=== PATIENT | female | born 1980 | race Caucasian/White ===

== ENCOUNTER 2016-04-10 13:35 | Emergency (ER) | payer SELFPAY ==
--- NOTE | 2016-04-10 13:55 | ER Document Report ---
ED Medical Screen (RME) - General Stated Complaint: BACK PAIN Time seen by provider: 13:51 Mode of Arrival: Ambulatory Information source: Patient Notes: 35-year-old female presents to ED for low back pain with pain in the upper back. He was diagnosed with arthritis and was started on prednisone and naproxen. She states she cannot go back to her doctor at this time because her insurance has not and affect at this time. This pain started 3 days ago and she is well-developed a topical cream on the back. States when she went to bed 3 days ago she did not have any pain when she woke up she did have the pain. States she has not done any activity out of the coronary and has not fallen or injured her back. Last menstrual period 03/27/1969 I have greeted and performed a rapid initial assessment of this patient. A comprehensive ED assessment and evaluation of the patient, analysis of test results and completion of medical decision making process will be conducted by an additional ED providers. TRAVEL OUTSIDE OF THE [place] IN LAST 30 DAYS: No - Related Data Allergies/Adverse Reactions: latex [Latex] Allergy (Verified 04/10/16 13:51) Past Medical History - Immunizations Hx Diphtheria, Pertussis, Tetanus Vaccination: Yes
--- NOTE | 2016-04-10 17:17 | ER Document Report ---
ED Neck/Back Problem - General Time seen by provider: 16:30 Mode of Arrival: Ambulatory Information source: Patient TRAVEL OUTSIDE OF THE [place] IN LAST 30 DAYS: No - HPI Patient complains to provider of: Pain Onset: Other - see HPI Associated symptoms: Lower back pain, Upper back pain <MAREK BARRON - Last Filed: 04/10/16 22:12> <SAMIASERGEY ARMINDA - Last Filed: 04/10/16 22:27> - General Chief Complaint: Back Pain Stated Complaint: BACK PAIN Notes: Patient is a 35 year old female presenting to the emergency department complaining of back pain. Patient states that her pain is in her lower back as well as her upper back. Patient states that she is unable to lift her son or other objects. Patient states that her pain goes down her spine. Patient states she is here because she was unable to get into her PCP today. Patient states she works at [employer] and she was sent to the ED by her boss today from work. ( MAREK BARRON) - Related Data Allergies/Adverse Reactions: latex [Latex] Allergy (Verified 04/10/16 13:51) Past Medical History - General Information source: Patient - Social History Smoking Status: Unknown if Ever Smoked Chew tobacco use (# tins/day): No Frequency of alcohol use: Occasional Drug Abuse: None Family History: None Patient has suicidal ideation: No Patient has homicidal ideation: No Psychiatric Medical History: Reports: Hx Anxiety - Immunizations Hx Diphtheria, Pertussis, Tetanus Vaccination: Yes <MAREK BARRON - Last Filed: 04/10/16 22:12> Review of Systems - Review of Systems Constitutional: No symptoms reported EENT: No symptoms reported Cardiovascular: No symptoms reported Respiratory: No symptoms reported Gastrointestinal: No symptoms reported Genitourinary: No symptoms reported Female Genitourinary: No symptoms reported Musculoskeletal: See HPI, Back pain Skin: No symptoms reported Hematologic/Lymphatic: No symptoms reported Neurological/Psychological: No symptoms reported -: Yes All other systems reviewed and negative <MAREK BARRON - Last Filed: 04/10/16 22:12> Physical Exam - Vital signs Interpretation: Normal - General General appearance: Appears well, Alert, Other - Able to ambulate In distress: Mild - HEENT Head: Normocephalic, Atraumatic Eyes: Normal Pupils: PERRL Mucous membranes: Normal - Respiratory Respiratory status: No respiratory distress Chest status: Nontender Breath sounds: Normal Chest palpation: Normal - Cardiovascular Rhythm: Regular Heart sounds: Normal auscultation Murmur: No - Abdominal Inspection: Normal Distension: No distension Bowel sounds: Normal Tenderness: Nontender Organomegaly: No organomegaly - Back Back: Normal, Tender - Tenderness to palpation over the bilateral paraspinal, L3 -L5. No: CVA tenderness - Extremities General upper extremity: Normal inspection, Normal ROM, Normal strength General lower extremity: Normal inspection, Normal ROM, Normal strength - Neurological Neuro grossly intact: Yes Cognition: Normal Orientation: AAOx4 [place] Coma Scale Eye Opening: Spontaneous [place] Coma Scale Verbal: Oriented [place] Coma Scale Motor: Obeys Commands [place] Coma Scale Total: 15 Speech: Normal Sensory: Normal - Psychological Associated symptoms: Normal affect, Normal mood - Skin Skin Temperature: Warm Skin Moisture: Dry <MAREK BARRON - Last Filed: 04/10/16 22:12> Course <MAREK BARRON - Last Filed: 04/10/16 22:12> - Diagnostic Test Radiology reviewed: Reports reviewed <SERGEY GRACIA - Last Filed: 04/10/16 22:27> - Re-evaluation Re-evalutation: 04/10/16 Patient is a 35-year-old female who comes in complaining of back pain. Patient is neurologically intact and ambulates quite easily. X-ray within normal limits. No evidence for intraspinal spinal pathology stable for discharge home. Follow-up with her doctor. (SERGEY GRACIA) - Vital Signs Vital signs: Temp Pulse Resp BP Pulse Ox 97.9 F 75 16 101/62 98 04/10/16 13:48 04/10/16 18:10 04/10/16 18:10 04/10/16 18:10 04/10/16 18:10 (MAREK BARRON) (SERGEY GRACIA) Discharge <MAREK BARRON - Last Filed: 04/10/16 22:12> <SERGEY GRACIA - Last Filed: 04/10/16 22:27> - Discharge Clinical Impression: Low back pain Qualifiers: Chronicity: acute Back pain laterality: bilateral Sciatica presence: without sciatica Qualified Code(s): M54.5 - Low back pain Condition: Stable Disposition: HOME, SELF-CARE Instructions: Low Back Pain ([facility]) Prescriptions: Hydrocodone/Acetaminophen [[place] 5-325 mg Tablet] 1 tab PO BIDP PRN #20 tablet PRN Reason: Forms: Return to Work Referrals: TYLER HUTCHINSON MD [Primary Care Provider] - Follow up in 3-5 days Scribe Attestation: 04/10/16 22:27 I personally performed the services described in the documentation, reviewed and edited the documentation which was dictated to the scribe in my presence, and it accurately records my words and actions. (SERGEY GRACIA) Scribe Documentation - Scribe Written by Scribnavdeep:: Marek Barron 04/10/16 18:50 acting as scribe for :: Samia <MAREK BARRON - Last Filed: 04/10/16 22:12>
[2016-04-10 17:38] LABS: AMORPHOUS SEDIMENT,URINE TRACE /HPF; APPEARANCE,URINE CLOUDY; BILIRUBIN,URINE NEGATIVE (NEGATIVE); GLUCOSE, URINE NEGATIVE (NEGATIVE); KETONES,URINE NEGATIVE (NEGATIVE); LEUKOCYTE ESTERASE,URINE NEGATIVE (NEGATIVE); NITRITE,URINE NEGATIVE (NEGATIVE); PROTEIN,URINE NEGATIVE (NEGATIVE); URINE SPECIFIC GRAVITY 1.011; UROBILINOGEN,URINE NEGATIVE mg/dL (<2.0)
[2016-04-10 18:12] VITALS: BP 101/62
== END 2016-04-10 18:10 | disposition home or self-care (01) ==
LOC: ER 13:35
DX: M54.5 Low back pain (principal); Z91.040 Latex allergy status
CPT/HCPCS: 72110; 81001; 81025; 99283

== ENCOUNTER 2017-06-12 18:54 | Emergency (ER) | payer MEDICAID, OTHER ==
[2017-06-12] MEDS ORDERED: LIDOCAINE 1% INJ-PF (10 MG/ML) 30 ML SDV INFIL ONE (20:07)
[2017-06-12] MEDS ORDERED: CEFTRIAXONE INJ 250 MG VIAL IM ONE (20:07)
[2017-06-12] MEDS ORDERED: AZITHROMYCIN 250 MG TABLET PO ONE (20:07)
--- NOTE | 2017-06-12 20:10 | ER Document Report ---
ED General - General Chief Complaint: Abdominal Pain Stated Complaint: ABDOMINAL PAIN Time Seen by Provider: 06/12/17 19:20 Mode of Arrival: Ambulatory Information source: Patient Notes: 36-year-old female presents with complaint of vaginal discharge for the past week. Patient notes foul odor denies any fevers or chills denies any nausea vomiting or diarrhea TRAVEL OUTSIDE OF THE [place] IN LAST 30 DAYS: No - HPI Onset: Last week Onset/Duration: Persistent Quality of pain: Sharp Severity: Mild Pain Level: 1 Associated symptoms: Other Exacerbated by: Denies Relieved by: Denies Similar symptoms previously: No - No previous history of STDs Recently seen / treated by doctor: No - Related Data Allergies/Adverse Reactions: latex [Latex] Allergy (Verified 06/12/17 19:02) Past Medical History - Social History Smoking Status: Never Smoker Cigarette use (# per day): No Chew tobacco use (# tins/day): No Smoking Education Provided: No Frequency of alcohol use: None Family History: Reviewed & Not Pertinent Patient has suicidal ideation: No Patient has homicidal ideation: No Renal/ Medical History: Denies: Hx Peritoneal Dialysis Psychiatric Medical History: Reports: Hx Anxiety - Immunizations Hx Diphtheria, Pertussis, Tetanus Vaccination: Yes Review of Systems - Review of Systems Notes: REVIEW OF SYSTEMS: CONSTITUTIONAL : Denies fever, chills, or sweats. Denies recent illness. EENT: Denies eye, ear, throat, or mouth pain or symptoms. Denies nasal or sinus congestion or discharge. Denies throat, tongue, or mouth swelling or difficulty swallowing. CARDIOVASCULAR: Denies chest pain. Denies palpitations or racing or irregular heart beat. Denies ankle edema. RESPIRATORY: Denies cough, cold, or chest congestion. Denies shortness of breath, difficulty breathing, or wheezing. GASTROINTESTINAL: Denies abdominal pain or distention. Denies nausea, vomiting , or diarrhea. Denies blood in vomitus, stools, or per rectum. Denies black, tarry stools. Denies constipation. GENITOURINARY: Denies difficulty urinating, painful urination, burning, frequency, blood in urine, or discharge. FEMALE GENITOURINARY: Admits to vaginal discharge MUSCULOSKELETAL: Denies back or neck pain or stiffness. Denies joint pain or swelling. SKIN: Denies rash, lesions or sores. HEMATOLOGIC : Denies easy bruising or bleeding. LYMPHATIC: Denies swollen, enlarged glands. NEUROLOGICAL: Denies confusion or altered mental status. Denies passing out or loss of consciousness. Denies dizziness or lightheadedness. Denies headache. Denies weakness or paralysis or loss of use of either side. Denies problems with gait or speech. Denies sensory loss, numbness, or tingling. Denies seizures. PSYCHIATRIC: Denies anxiety or stress. Denies depression, suicidal ideation, or homicidal ideation. ALL OTHER SYSTEMS REVIEWED AND NEGATIVE. PHYSICAL EXAMINATION: GENERAL: Well-appearing, well-nourished and in no acute distress. HEAD: Atraumatic, normocephalic. EYES: Pupils equal round and reactive to light, extraocular movements intact, conjunctiva are normal. ENT: Nares patent, oropharynx clear without exudates. Moist mucous membranes. NECK: Normal range of motion, supple without lymphadenopathy LUNGS: Breath sounds clear to auscultation bilaterally and equal. No wheezes rales or rhonchi. HEART: Regular rate and rhythm without murmurs ABDOMEN: Soft, nontender, nondistended abdomen. No guarding, no rebound. No masses appreciated. Female : pelvic exam performed with tech in room, thick white discharge noted , no pid Musculoskeletal: Normal range of motion, no pitting or edema. No cyanosis. NEUROLOGICAL: Cranial nerves grossly intact. Normal speech, normal gait. Normal sensory, motor exams PSYCH: Normal mood, normal affect. SKIN: Warm, Dry, normal turgor, no rashes or lesions noted. Dictation was performed using [facility] voice recognition software Physical Exam - Vital signs Vitals: Temp Pulse Resp BP Pulse Ox 98.3 F 80 16 103/69 100 06/12/17 19:02 06/12/17 19:02 06/12/17 19:02 06/12/17 19:02 06/12/17 19:02 Course - Re-evaluation Re-evalutation: 06/12/17 20:09 Patient does have white vaginal discharge, to be treated for concerning for STD 06/12/17 20:19 +4 bacteria is noted on the urine, patient will also be treated for bacterial vaginosis at this time culture still pending After performing a Medical Screening Examination, I estimate there is LOW risk for ACUTE APPENDICITIS, BOWEL OBSTRUCTION, ACUTE CHOLECYSTITIS, PERFORATED DIVERTICULITIS, INCARCERATED HERNIA, PANCREATITIS, PELVIC INFLAMMATORY DISEASE, PERFORATED ULCER, ECTOPIC , or TUBO-OVARIAN ABSCESS, thus I consider the discharge disposition reasonable. Also, there is no evidence or peritonitis , sepsis, or toxicity. I have reevaluated this patient multiple times and no significant life threatening changes are noted. The patient and I have discussed the diagnosis and risks, and we agree with discharging home with close follow-up with the understanding that symptoms and presentations can change. We also discussed returning to the Emergency Department immediately if new or worsening symptoms occur. We have discussed the symptoms which are most concerning (e.g., bloody stool, fever, changing or worsening pain, vomiting) that necessitate immediate return. - Vital Signs Vital signs: Temp Pulse Resp BP Pulse Ox 98.3 F 80 16 103/69 100 06/12/17 19:02 06/12/17 19:02 06/12/17 19:02 06/12/17 19:02 06/12/17 19:02 Discharge - Discharge Clinical Impression: Bacterial vaginosis, Pelvic pain Condition: Stable Disposition: HOME, SELF-CARE Instructions: Vaginosis, Bacterial ([facility]) Prescriptions: Hydrocodone/Acetaminophen [[place] 5-325 mg Tablet] 1 tab PO Q6 #10 tablet Metronidazole [Flagyl 500 mg Tablet] 500 mg PO BID #14 tablet Referrals: TYLER HUTCHINSON MD [Primary Care Provider] - Follow up as needed [facility] [Provider Group] - Follow up in 3-5 days
[2017-06-12 20:12] LABS: T.VAGINALIS (WET MOUNT) NO TRICHOMONAS SEEN; YEAST (WET MOUNT) NO YEAST SEEN
[2017-06-12 20:13] LABS: BACTERIA (WET MOUNT) 4+ BACTERIA SEEN; EPITHELIALS (WET MOUNT) 3+ EPITHELIALS SEEN; WBCS (WET MOUNT) 3+ WBCS SEEN
[2017-06-12 20:31] LABS: APPEARANCE,URINE CLEAR; BILIRUBIN,URINE NEGATIVE (NEGATIVE); COLOR,URINE STRAW; GLUCOSE, URINE NEGATIVE (NEGATIVE); KETONES,URINE NEGATIVE (NEGATIVE); URINE SPECIFIC GRAVITY 1.009
[2017-06-12 20:32] LABS: LEUKOCYTE ESTERASE,URINE LARGE (NEGATIVE); NITRITE,URINE NEGATIVE (NEGATIVE); PROTEIN,URINE NEGATIVE (NEGATIVE); UROBILINOGEN,URINE NEGATIVE mg/dL (<2.0)
[2017-06-12 20:39] VITALS: BP 105/70
[2017-06-12 21:36] LABS: CHLAM PCR NOT DETECTED (NOT DETECT); GON PCR NOT DETECTED (NOT DETECT)
== END 2017-06-12 20:38 | disposition home or self-care (01) ==
LOC: ER 18:54
DX: N76.0 Acute vaginitis (principal); B96.89 Other specified bacterial agents as the cause of diseases classified elsewhere; R10.2 Pelvic and perineal pain; Z91.040 Latex allergy status
CPT/HCPCS: 99284; 96372; 87210; 81025; 81001; 87491; 87591; J3490; J0696